=== PATIENT | female | born 1945 | race Caucasian/White ===

== ENCOUNTER → 2018-12-24 | Outpatient (CLI) | payer MEDICARE, BC ==
--- NOTE | 2018-12-24 20:51 | Diagnostic Imaging Report ---
Parathyroid Scan with SPECT Reason for exam: E21.3 Hyperparathyroidism Radiopharmaceutical: Tc-99m sestamibi 27 mCi After intravenous administration of the radiopharmaceutical, immediate and 2-hour planar images of the neck and upper chest were obtained. Tomographic images of the neck and upper chest were also obtained following the initial planar images. A focal area of increased tracer is seen in the left thyroid lobe on the initial planar images. On the tomographic images, this tracer activity appears to be immediately posterior to the left thyroid lobe although it is not identified as distinct from the thyroid lobe. On the delayed planar images, this focus of tracer activity persists. The washout of tracer from the thyroid is adequate. Impression: No definite scan evidence of an enlarged, hypermetabolic parathyroid gland, however, one is expected immediately posterior to the mid aspect of the left thyroid lobe. A thyroid adenoma could give the same appearance. A radioiodine thyroid scan would differentiate between a a parathyroid adenoma and a thyroid adenoma. Signed by: Dr. Claire Vickers M.D. on 12/24/2018 8:48 PM
== END ==
LOC: NM 12:48
PROVIDERS: ATTEND Family Medicine
DX: E21.3 Hyperparathyroidism, unspecified (principal)
CPT/HCPCS: 78071; A9500

== ENCOUNTER 2021-02-12 10:05 | Emergency (ER) | payer MEDICARE, BC ==
[~2021-02-12] VITALS: Ht 165.1 cm; Wt 72.6 kg
[2021-02-12] MEDS ORDERED: FAMOTIDINE 20 MG/2 ML VIAL IV STA (10:52)
[2021-02-12] MEDS ORDERED: KETOROLAC TROMETHAMINE 30 MG/ML VIAL IV STA (10:52)
[2021-02-12] MEDS ORDERED: SODIUM CHLORIDE 0.9% 500ML 500 ML IV ONE (11:00)
[2021-02-12] MEDS ORDERED: SODIUM CHLORIDE 0.9% 50ML 50 ML ONE (11:10)
[2021-02-12] MEDS ORDERED: IOPAMIDOL 370 MG/ML 200 ML INFUS..BTL INJ ONE (11:10)
[2021-02-12] MEDS ORDERED: FAMOTIDINE 20 MG/2 ML VIAL IV ONE (11:17)
[2021-02-12] MEDS ORDERED: KETOROLAC TROMETHAMINE 30 MG/ML VIAL ONE (11:17)
[2021-02-12] MEDS ORDERED: CEFTRIAXONE 1 GM VIAL ONE (11:17)
[2021-02-12] MEDS ORDERED: SODIUM CHLORIDE 0.9% 500ML 500 ML ONE (11:17)
[2021-02-12] MEDS ORDERED: CEFTRIAXONE 1 GM in SODIUM CHLORIDE 0.9% 50ML 50 ML IV ONE (11:30)
[2021-02-12] MEDS ORDERED: METRONIDAZOLE 500MG/NS 100ML 100 ML IV ONE ×2 (12:45→13:14)
[2021-02-12] MEDS ORDERED: CIPROFLOXACIN 400 MG/D5W 200ML 200 ML IV SCH (12:45)
[2021-02-12] MEDS ORDERED: CIPROFLOXACIN 400 MG/D5W 200ML 200 ML IV ONE (13:14)
[2021-02-12] MEDS ORDERED: CIPRO500 MG PO (14:27)
[2021-02-12] MEDS ORDERED: FLAGYL500 MG PO (14:28)
[2021-02-12] MEDS ORDERED: TYLENOL # 31 EA PO (14:29)
[2021-02-12] MEDS ORDERED: ONDANSETRON ODT4 MG PO (14:32)
[2021-02-12] MEDS ORDERED: DICYCLOMINE HCL20 MG PO (14:40)
== END 2021-02-12 15:20 | disposition home or self-care (01) ==
LOC: FSED 10:09
DX: R10.30 Lower abdominal pain, unspecified (principal); K57.32 Diverticulitis of large intestine without perforation or abscess without bleeding; R91.8 Other nonspecific abnormal finding of lung field; N83.202 Unspecified ovarian cyst, left side; N83.201 Unspecified ovarian cyst, right side; K80.20 Calculus of gallbladder without cholecystitis without obstruction; I10 Essential (primary) hypertension; I25.10 Atherosclerotic heart disease of native coronary artery without angina pectoris; Z95.5 Presence of coronary angioplasty implant and graft
CPT/HCPCS: 74177; 81003; 82553; 84484; 85025; 87086; 96374; 96376; 99284; J0696; J0744; J1885; J7040; Q9967